=== PATIENT | female | born 1980 | race Caucasian/White ===

== ENCOUNTER 2018-07-29 16:30 | Inpatient (IN) | payer BC ==
[2018-07-29] VITALS (28 sets, daily range): BP systolic 94–165; BP diastolic 53–76; PULSE 51–67; TEMP 97.3–98.3
[~2018-07-29] VITALS: Ht 170.2 cm; Wt 71.4 kg
[~2018-07-29 16:30] MED LIST: FERROUS SU325 MG/TAB PO; IBU800 M1 PO; IRON324 MG PO; MOTRIN 600600 MG/TAB PO; PERCOCET 325 MG1 TA2 PO; PRENATAL1 TA1 PO
[2018-07-29 17:34] LABS: BASO % 0.4 % (0.0-2.0); EOS # 0.1 (0.0-0.7); GRAN # 5.1 (1.4-6.5); GRAN % 70.9 % (42.2-75.2); LYMPH # 1.4 (1.2-3.4); LYMPH % 19.5 % (20.0-51.0); MEAN CELL VOLUME 85 fl (80.0-100.0); MEAN CORPUSCULAR HEMOGLOBIN 27 pg (27.0-31.0); MEAN CORPUSCULAR HGB CONC 32 g/dl (33.0-37.0); MEAN PLATELET VOLUME 9.6 fl (7.4-10.4); MONO # 0.5 (0.1-0.6); MONO % 7.2 % (1.7-9.3); PLATELET COUNT 139 K/mm3 (130-400); RED BLOOD COUNT 4.01 M/mm3 (4.10-5.30); REDCELL DISTRIBUTION WIDTH-CV 19.3 % (11.5-14.5)
[2018-07-29 17:37] LABS: HEMATOCRIT 33.9 % (37.0-47.0)
[2018-07-30] VITALS (17 sets, daily range): BP systolic 87–128; BP diastolic 46–81; PULSE 54–78; TEMP 97.9–98.4
[2018-07-31 07:00] VITALS: BP 100/53; PULSE 58; TEMP 98.2
[2018-07-31] MEDS ORDERED: IBU800 M1 PO (08:42)
[2018-07-31 17:05] VITALS: BP 102/69; PULSE 66; TEMP 98.4
[2018-07-31 21:00] VITALS: BP 113/64; PULSE 66; TEMP 98
[2018-08-01 06:40] VITALS: BP 110/60; PULSE 71; TEMP 98.6
== END 2018-08-01 16:20 | disposition home or self-care (01) | DRG 775 ==
LOC: LDRO 16:30 → LDR 17:15 → OB 07-30 10:00
PROVIDERS: Student in an Organized Health Care Education/Training Program
PROC: 10907ZC Drainage of Amniotic Fluid, Therapeutic from Products of Conception, Via Natural or Artificial Opening (ICD-10-PCS; 2018-07-29)
PROC: 3E033VJ Introduction of Other Hormone into Peripheral Vein, Percutaneous Approach (ICD-10-PCS; 2018-07-29)
PROC: 10E0XZZ Delivery of Products of Conception, External Approach (ICD-10-PCS; principal; 2018-07-30)
PROC: 0KQM0ZZ Repair Perineum Muscle, Open Approach (ICD-10-PCS; 2018-07-30)
DX: O48.0 Post-term pregnancy (principal); Z3A.40 40 weeks gestation of pregnancy; Z37.0 Single live birth; O70.1 Second degree perineal laceration during delivery; O99.02 Anemia complicating childbirth; Z22.330 Carrier of Group B streptococcus
CPT/HCPCS: J2540; J2590; J7120